=== PATIENT | female | born 1980 | race Caucasian/White ===

== ENCOUNTER 2020-11-13 10:50 | Outpatient (CLI) | payer BC | END 2020-11-13 10:51 | disposition home or self-care (01) | LOC: BICMAMMO 10:50 | PROVIDERS: ATTEND Family Medicine | DX: Z12.31 Encounter for screening mammogram for malignant neoplasm of breast (principal); Z80.3 Family history of malignant neoplasm of breast | CPT/HCPCS: 77063; 77067 ==

== ENCOUNTER 2023-06-23 07:58 | Outpatient (CLI) | payer BC | END 2023-06-23 07:59 | disposition home or self-care (01) | LOC: BICMAMMO 07:58 | PROVIDERS: ATTEND Family Medicine | DX: Z12.31 Encounter for screening mammogram for malignant neoplasm of breast (principal); Z80.3 Family history of malignant neoplasm of breast | CPT/HCPCS: 77063; 77067 ==

== ENCOUNTER 2024-11-20 11:28 | Outpatient (CLI) | payer BC | END 2024-11-20 11:29 | disposition home or self-care (01) | LOC: SCSRAD 11:28 | PROVIDERS: ATTEND Family Medicine | DX: M79.641 Pain in right hand (principal) ==